=== PATIENT | male | born 1970 | race Caucasian/White ===

== ENCOUNTER 2019-09-14 06:18 | Day surgery (SDC) | payer OTHER ==
[2019-09-10 10:53] VITALS: BMI 24.3
[2019-09-14] MEDS ORDERED: PROPOFOL 20 ML ONE ×2 (07:34→08:31)
[2019-09-14] MEDS ORDERED: MIDAZOLAM HCL 2 MG/2 ML SINGLE DOSE VIAL ONE (07:34)
[2019-09-14] MEDS ORDERED: ROCURONIUM BROMIDE 50 MG/5 ML SYRINGE ONE (07:34)
[2019-09-14] MEDS ORDERED: KETAMINE HCL 200 MG/20 ML VIAL ONE (07:34)
[2019-09-14] MEDS ORDERED: SUCCINYLCHOLINE CHLORIDE 200 MG/10 ML SYRINGE ONE (07:34)
[2019-09-14] MEDS ORDERED: ceFAZolin SODIUM 1 GM VIAL ONE (07:36)
[2019-09-14] MEDS ORDERED: KETOROLAC TROMETHAMINE 30 MG/1 ML VIAL ONE (07:36)
[2019-09-14] MEDS ORDERED: LIDOCAINE HCL/PF 2% SDV 5ML VIAL ONE (07:36)
[2019-09-14] MEDS ORDERED: DEXAMETHASONE SOD PHOSPHATE 4 MG/1 ML VIAL ONE (07:36)
[2019-09-14] MEDS ORDERED: SODIUM CHLORIDE 0.9% P/F 10 ML VIAL IJ ONE (07:36)
--- NOTE | 2019-09-14 08:11 | HP ---
Admitting History and Physical - Admission Chief Complaint: hemorrhoids History of Present Illness: 48 y.o. male presents with stage 2 & 3 hemorrhoids on colonoscopy History Source: Patient - Smoking History Smoking history: Never smoked Have you smoked in the past 12 months: No Home Medications - Allergies Allergies/Adverse Reactions: Allergies Allergy/AdvReac Type Severity Reaction Status Date / Time No Known Drug Allergies Allergy Verified 09/14/19 06:41 - Home Medications Home Medications: Ambulatory Orders Multivitamin [Multiple Vitamins] 1 tab PO DAILY 09/10/19 Review of Systems - Review of Systems Constitutional: reports: No Symptoms Neck: reports: No Symptoms Cardiovascular: reports: No Symptoms Respiratory: reports: No Symptoms Gastrointestinal: reports: Rectal Bleeding (occasional) Genitourinary: reports: No Symptoms Physical Examination Vital Signs: Vital Signs Temperature 97.3 F L 09/14/19 06:33 Pulse Rate 65 09/14/19 06:33 Respiratory Rate 18 09/14/19 06:33 Blood Pressure 118/62 09/14/19 06:33 O2 Sat by Pulse Oximetry (%) Constitutional: Yes: Well Nourished HENT: Yes: Normocephalic Neck: Yes: Supple Cardiovascular: Yes: Regular Rate and Rhythm Respiratory: Yes: CTA Bilaterally Gastrointestinal: Yes: Soft ...Rectal Exam: Yes: Hemorrhoids/Internal (stage 3 LL column, stage 2 RA & RP columns) Problem List - Problems (1) Hemorrhoids that prolapse with straining and require manual replacement back inside anal canal Assessment/Plan: examination under anesthesia, hemorrhoidectomy Code(s): K64.2 - THIRD DEGREE HEMORRHOIDS
[2019-09-14] MEDS ORDERED: ceFAZolin SODIUM 1 GM VIAL IVPB ONE (08:23)
[2019-09-14] MEDS ORDERED: ONDANSETRON 4 MG/2 ML VIAL IVPUSH PRN (08:55)
[2019-09-14] MEDS ORDERED: oxyCODONE HCL 5 MG TABLET PO PRN (08:55)
[2019-09-14] MEDS ORDERED: LACTATED RINGERS SOLUTION 1,000 ML IV SCH (09:00)
[2019-09-14 10:20] VITALS: TEMP 97.1
[2019-09-14 12:56] VITALS: BP 130/62; PULSE 54
--- NOTE | 2019-09-14 19:52 | OP ---
DATE OF OPERATION: 09/14/2019 PROCEDURE: Examination under anesthesia, left lateral column hemorrhoidectomy, and right anterior and right posterior column suture ligation of stage 2 hemorrhoids. PREOPERATIVE DIAGNOSIS: Stage 2, stage 3 hemorrhoids. POSTOPERATIVE DIAGNOSIS: Stage 2, stage 3 hemorrhoids. SURGEON: Calvin Martinez MD. ANESTHESIA: Spinal. FINDINGS ON PROCEDURE: This is a 48-year-old male who has an internal-external hemorrhoids of the left lateral column just about 2 x 1 cm in size and 1 cm stage 2 right anterior and right posterior column hemorrhoids. Due to irritation of the distal component of the hemorrhoid, patient desired removal of hemorrhoids, and consent was obtained after discussion of the risks, benefits, and alternatives to the procedure. DESCRIPTION OF PROCEDURE: Patient was brought to the operating room and placed in seated position. Spinal anesthesia was administered. Patient was then placed in lithotomy position. The peritoneum was prepped and draped in the usual sterile fashion using lidocaine 1% with epinephrine. Perianal anesthesia was administered. The anal canal and the distal rectum were carefully inspected and were noted to be free of any abdominal lesions. The left lateral column hemorrhoids were excised by applying suture ligature to the base of the internal hemorrhoid above the dentate line. The internal/external component was excised using Bovie cautery. The wound was closed with a continuous Vicryl 2-0 suture. Stage 2 hemorrhoids were then suture ligated with Vicryl 3-0. A piece of Surgicel was inserted into the anal canal for further hemostasis. Patient was then placed in supine position, transferred to the post anesthesia care unit in satisfactory condition. Estimated blood loss was about 5 mL, wound class contaminated. Patient received a gram of Ancef prior to the start of the procedure. CALVIN MARTINEZ M.D. [id number] MTDD
--- NOTE | 2019-09-17 17:11 | PATH ---
Surgical Pathology Report Patient Name: MAYRA MCKEON Med. Rec. #: [id number] /Age/Gender: 1970 (Age: 48) / M Account: [id number] Location: [facility] SURGICAL Taken: 09/14/2019 Received: 09/14/2019 Reported: 09/17/2019 Physicians: Calvin Martinez M.D. Specimen(s) Received HEMORRHOID Clinical History Hemorrhoids Final Diagnosis HEMORRHOID, HEMORRHOIDECTOMY: POLYPOID SQUAMOUS MUCOSA WITH DILATED THICK WALLED CONGESTED SUBMUCOSAL VESSELS CONSISTENT WITH HEMORRHOIDS. Electronically Signed Sydnee Verma M.D. Gross Description Received in formalin labeled "hemorrhoid," is a 2.9 x 1.0 x 0.6 cm hua, unoriented portion of skin. Sectioning reveals hemorrhagic soft tissue. The base is inked blue and the specimen is bisected and entirely submitted in one cassette. DL/09/14/2019 saudi/09/14/2019
== END 2019-09-14 12:30 | disposition home or self-care (01) ==
LOC: JASU-SURG 06:18
PROVIDERS: ATTEND Surgery
PROC: 06LY0ZC Occlusion of Hemorrhoidal Plexus, Open Approach (ICD-10-PCS; 2019-09-14)
PROC: 06BY0ZC Excision of Hemorrhoidal Plexus, Open Approach (ICD-10-PCS; principal; 2019-09-14 08:00)
DX: K64.2 Third degree hemorrhoids (principal); K64.1 Second degree hemorrhoids
CPT/HCPCS: 88304-TC; 94760